=== PATIENT | male | born 1940 | race Caucasian/White ===

== ENCOUNTER 2021-04-11 14:00 | Outpatient (CLI) | payer MEDICARE, OTHER ==
[2021-04-11] MEDS ORDERED: COLLAGENASE 5 GM TUBE UD TP ONE (14:22)
[2021-04-11] MEDS ORDERED: AMYL1CAP54 PO (16:20)
[2021-04-11] MEDS ORDERED: INSU10VI3 SQ (16:20)
[2021-04-11] MEDS ORDERED: SIMV10TA98 PO (16:20)
[2021-04-11] MEDS ORDERED: BISA10SU12 RC (16:20)
[2021-04-11] MEDS ORDERED: CARV3.122 PO (16:20)
[2021-04-11] MEDS ORDERED: FINA5TAB11 PO (16:20)
[2021-04-11] MEDS ORDERED: LINA145C PO (16:20)
[2021-04-11] MEDS ORDERED: DULA0.75 SQ (16:20)
[2021-04-11] MEDS ORDERED: TRAZ-182 PO (16:20)
[2021-04-11] MEDS ORDERED: DOXY100C2 PO (16:22)
[2021-04-11] MEDS ORDERED: CALC1TAB30 PO (16:24)
== END 2021-04-11 23:59 | disposition home or self-care (01) ==
LOC: WOU 14:00
PROVIDERS: ATTEND Surgery
DX: I96 Gangrene, not elsewhere classified (principal); L89.310 Pressure ulcer of right buttock, unstageable; L89.620 Pressure ulcer of left heel, unstageable; E11.621 Type 2 diabetes mellitus with foot ulcer; E11.52 Type 2 diabetes mellitus with diabetic peripheral angiopathy with gangrene; L97.518 Non-pressure chronic ulcer of other part of right foot with other specified severity; I10 Essential (primary) hypertension; E78.5 Hyperlipidemia, unspecified; M62.50 Muscle wasting and atrophy, not elsewhere classified, unspecified site; Z79.4 Long term (current) use of insulin; Z87.891 Personal history of nicotine dependence
CPT/HCPCS: G0463

== ENCOUNTER 2021-04-11 15:02 | Inpatient (IN) | payer MEDICARE, OTHER ==
[~2021-04-11] VITALS: Ht 172.7 cm; Wt 87.3 kg
[2021-04-11] MEDS ORDERED: IV NS 0.9% 1,000 ML BAG IV ONE (15:30)
[2021-04-11] MEDS ORDERED: PIPERACILLIN /TAZOBACTAM 3.375 G in IV D5W 50 ML IV ONE (15:30)
[2021-04-11] MEDS ORDERED: VANCOMYCIN 1 GM in IV D5W 250 ML IV ONE (15:30)
[2021-04-11 16:07] LABS: BASOPHILS % (AUTO) 0.2 % (0.0-2.0); HEMATOCRIT 43 % (39-51); HEMOGLOBIN 13.6 g/dL (13.5-17.5); LYMPHOCYTES # (AUTO) 1.6 K/uL (0.8-4.8); MEAN CORPUSCULAR HGB CONC 32 g/dl (31.0-36.0); MEAN CORPUSCULAR VOLUME 89 fL (80-96); MONOCYTES # (AUTO) 1.2 K/uL (0.1-1.30); MONOCYTES % (AUTO) 8.9 % (2.0-12.0); NEUTROPHILS # (AUTO) 10.4 K/uL (1.8-8.9); NEUTROPHILS % (AUTO) 77.9 % (43.0-81.0); PLATELET COUNT (AUTO) 402 K/uL (150-450); WHITE BLOOD COUNT (AUTO) 13.4 K/uL (4.3-11.0)
[2021-04-11 16:16] LABS: CALCIUM, SERUM 8.9 mg/dL (8.5-10.1); CARBON DIOXIDE 28 mmol/L (21-32); CHLORIDE 102 mmol/L (98-107); CREATININE 1.1 mg/dL (0.6-1.3); GLUCOSE 138 mg/dL (74-106); POTASSIUM 5.1 mmol/L (3.5-5.1); SODIUM SERUM 136 mmol/L (136-145); UREA NITROGEN, BLOOD 32 mg/dL (7-18)
[2021-04-11] MEDS ORDERED: AMYL1CAP54 PO (16:20)
[2021-04-11] MEDS ORDERED: LINA145C PO (16:20)
[2021-04-11] MEDS ORDERED: CARV3.122 PO (16:20)
[2021-04-11] MEDS ORDERED: DULA0.75 SQ (16:20)
[2021-04-11] MEDS ORDERED: SIMV10TA98 PO (16:20)
[2021-04-11] MEDS ORDERED: FINA5TAB11 PO (16:20)
[2021-04-11] MEDS ORDERED: TRAZ-182 PO (16:20)
[2021-04-11] MEDS ORDERED: BISA10SU12 RC (16:20)
[2021-04-11] MEDS ORDERED: INSU10VI3 SQ (16:20)
[2021-04-11 16:22] LABS: ALANINE AMINOTRANSFERASE 32 U/L (12-78); ALBUMIN 2.2 g/dL (3.4-5.0); ALKALINE PHOSPHATASE 266 U/L (46-116); ASPARTATE AMINOTRANSFERASE 69 U/L (15-37); BILIRUBIN,DIRECT 0.3 mg/dL (0.0-0.2); BILIRUBIN,TOTAL 0.9 mg/dL (0.2-1.0); TOTAL PROTEIN, SERUM 7.4 g/dL (6.4-8.2)
[2021-04-11] MEDS ORDERED: DOXY100C2 PO (16:22)
[2021-04-11] MEDS ORDERED: CALC1TAB30 PO (16:24)
[2021-04-11 16:56] LABS: BILIRUBIN,URINE NEGATIVE (NEGATIVE); COLOR,URINE YELLOW (YELLOW); LEUKOCYTE ESTERASE ,URINE NEGATIVE (NEGATIVE); NITRITE, URINE NEGATIVE (NEGATIVE); PROTEIN,URINE NEGATIVE (NEGATIVE); UGLUCOSE NEGATIVE (NEGATIVE); UROBILINOGEN,URINE 0.2 EU/dL (0.2)
[2021-04-11 20:00] VITALS: BP 122/80
[2021-04-11] MEDS ORDERED: MORPHINE SULFATE INJ 2 MG/ML DISP.SYRIN IV PRN (21:30)
[2021-04-11] MEDS ORDERED: ZOLPIDEM TARTRATE 5 MG TABLET PO PRN (21:30)
[2021-04-11] MEDS ORDERED: BISACODYL SUPP (10 MG) 10 MG/SUPP.RECT SUPP.RECT RC PRN (21:30)
[2021-04-11] MEDS: ENOXAPARIN SODIUM 40 MG/0.4 ML DISP.SYRIN SQ SCH ×2 (21:30→22:41)
[2021-04-11] MEDS ORDERED: Z GUARD REMEDY 2 OZ OINT TP PRN (21:30)
[2021-04-11] MEDS ORDERED: CEFEPIME 2 GM in IV D5W 100 ML IV SCH (21:30)
[2021-04-11] MEDS ORDERED: ONDANSETRON HCL/PF 4 MG/2 ML VIAL IVP PRN (21:30)
[2021-04-11] MEDS ORDERED: MAGNESIUM HYDROXIDE 30 ML UDC PO PRN (21:30)
[2021-04-11] MEDS ORDERED: ACETAMINOPHEN 325 MG TABLET PO PRN (21:30)
[2021-04-11] MEDS: TRAZODONE 50 MG TABLET PO SCH ×2 (22:00→22:40)
[2021-04-11] MEDS: IV NS 0.9% 1,000 ML IV PRN (22:52)
[2021-04-11] MEDS ORDERED: CEFEPIME 1 GM VIAL ONE (23:12)
[2021-04-11] MEDS: CEFEPIME 2 GM in IV D5W 100 ML IV SCH (23:55)
[2021-04-12 06:41] LABS: BASOPHILS % (AUTO) 0.1 % (0.0-2.0); EOSINOPHILS % (AUTO) 1.2 % (0.0-6.0); HEMATOCRIT 44 % (39-51); HEMOGLOBIN 14.1 g/dL (13.5-17.5); LYMPHOCYTES # (AUTO) 1.2 K/uL (0.8-4.8); LYMPHOCYTES % (AUTO) 11.6 % (20.0-44.0); MEAN CORPUSCULAR HGB CONC 32 g/dl (31.0-36.0); MEAN CORPUSCULAR VOLUME 92 fL (80-96); MONOCYTES # (AUTO) 0.9 K/uL (0.1-1.30); MONOCYTES % (AUTO) 8.8 % (2.0-12.0); NEUTROPHILS # (AUTO) 8.2 K/uL (1.8-8.9); NEUTROPHILS % (AUTO) 78.3 % (43.0-81.0); PLATELET COUNT (AUTO) 340 K/uL (150-450); RED BLOOD CELL COUNT(AUTO) 4.76 MIL/uL (4.5-6.0); WHITE BLOOD COUNT (AUTO) 10.5 K/uL (4.3-11.0)
[2021-04-12 07:06] LABS: CALCIUM, SERUM 8.8 mg/dL (8.5-10.1); MAGNESIUM 1.7 mg/dL (1.8-2.4); PHOSPHORUS 3.6 mg/dL (2.5-4.9); POTASSIUM 4.7 mmol/L (3.5-5.1)
[2021-04-12 07:10] LABS: THYROID STIMULATING HORMONE 1.557 uIU/mL (0.358-3.74)
[2021-04-12] MEDS: PANTOPRAZOLE 40 MG TABLET.DR PO SCH ×2 (07:30→08:15)
[2021-04-12] MEDS: LIPASE/PROTEASE/AMYLASE 1 EACH CAPSULE.DR PO SCH ×5 (08:00→18:00)
[2021-04-12] MEDS: FINASTERIDE (5 MG) 5 MG TABLET PO SCH ×2 (08:15→09:00)
[2021-04-12] MEDS: DOCUSATE SODIUM 100 MG CAPSULE PO SCH ×3 (08:15→17:00)
[2021-04-12] MEDS: CARVEDILOL 3.125 MG TABLET PO SCH ×3 (08:18→17:00)
[2021-04-12 08:35] VITALS: BP_SYST 108; BP_SYST 115; BP_DIAS 51; BP_DIAS 59
[2021-04-12] MEDS: INSULN 70/30 ASP+PRT/ASP MIX 100 UNIT/ML CARTRIDGE SQ SCH ×2 (09:00→17:00)
[2021-04-12] MEDS: VANCOMYCIN 1 GM in IV D5W 250 ML IV SCH ×2 (09:54→20:02)
[2021-04-12] MEDS: CEFEPIME 2 GM in IV D5W 100 ML IV SCH ×2 (11:21→21:30)
[2021-04-12] MEDS: Magnesium 1GM/D5W 100ML PREMIX 100 ML IV SCH ×2 (11:21→12:39)
[2021-04-12] MEDS ORDERED: ALBUTEROL FS 2.5 MG/0.5 ML VIAL.NEB NEB PRN (12:00)
[2021-04-12] MEDS ORDERED: IPRATROPIUM NEB FS 0.5 MG/2.5 ML AMPUL.NEB NEB PRN (12:30)
[2021-04-12 16:23] VITALS: BP 138/54
[2021-04-12] MEDS: SIMVASTATIN 10 MG TABLET PO SCH (18:00)
[2021-04-12] MEDS: IV NS 0.9% 1,000 ML IV PRN (18:47)
[2021-04-12 20:00] VITALS: BP 127/93
[2021-04-12] MEDS: ENOXAPARIN SODIUM 40 MG/0.4 ML DISP.SYRIN SQ SCH (21:53)
[2021-04-12] MEDS: TRAZODONE 50 MG TABLET PO SCH (22:00)
[2021-04-13 07:27] LABS: BASOPHILS % (AUTO) 0.3 % (0.0-2.0); EOSINOPHILS % (AUTO) 1.1 % (0.0-6.0); HEMATOCRIT 44 % (39-51); HEMOGLOBIN 14.2 g/dL (13.5-17.5); LYMPHOCYTES % (AUTO) 9.8 % (20.0-44.0); MEAN CORPUSCULAR HGB CONC 32 g/dl (31.0-36.0); MEAN CORPUSCULAR VOLUME 90 fL (80-96); MONOCYTES # (AUTO) 0.8 K/uL (0.1-1.30); MONOCYTES % (AUTO) 7.8 % (2.0-12.0); NEUTROPHILS # (AUTO) 7.9 K/uL (1.8-8.9); PLATELET COUNT (AUTO) 343 K/uL (150-450); RED BLOOD CELL COUNT(AUTO) 4.87 MIL/uL (4.5-6.0); WHITE BLOOD COUNT (AUTO) 9.8 K/uL (4.3-11.0)
[2021-04-13] MEDS: PANTOPRAZOLE 40 MG TABLET.DR PO SCH (07:30)
[2021-04-13 07:39] LABS: CALCIUM, SERUM 8.9 mg/dL (8.5-10.1); CREATININE 1.1 mg/dL (0.6-1.3); MAGNESIUM 2.3 mg/dL (1.8-2.4); PHOSPHORUS 3.8 mg/dL (2.5-4.9); POTASSIUM 4.5 mmol/L (3.5-5.1)
[2021-04-13 08:00] VITALS: BP 150/71
[2021-04-13] MEDS: VANCOMYCIN 1 GM in IV D5W 250 ML IV SCH (08:00)
[2021-04-13] MEDS: LIPASE/PROTEASE/AMYLASE 1 EACH CAPSULE.DR PO SCH ×3 (08:00→18:00)
[2021-04-13] MEDS: FINASTERIDE (5 MG) 5 MG TABLET PO SCH (09:00)
[2021-04-13] MEDS: INSULN 70/30 ASP+PRT/ASP MIX 100 UNIT/ML CARTRIDGE SQ SCH ×2 (09:00→17:00)
[2021-04-13] MEDS: CARVEDILOL 3.125 MG TABLET PO SCH ×3 (09:00→16:52)
[2021-04-13] MEDS: DOCUSATE SODIUM 100 MG CAPSULE PO SCH ×3 (09:00→16:52)
[2021-04-13] MEDS: CEFEPIME 2 GM in IV D5W 100 ML IV SCH ×2 (09:26→20:04)
[2021-04-13] MEDS ORDERED: IOHEXOL-350 100 ML VIAL IV ONE ×2 (09:33→14:38)
[2021-04-13] MEDS: IV NS 0.9% 1,000 ML IV PRN (13:19)
[2021-04-13] MEDS ORDERED: CT SWABBABLE VALVE TRANS SET 1 EA INFUS.SET MC ONE (14:38)
[2021-04-13] MEDS ORDERED: IV NS 0.9% 250 ML IV ONE (14:38)
[2021-04-13 16:00] VITALS: BP 103/50
[2021-04-13] MEDS: DAKINS QUARTER STRENGTH (0.125%) 480 ML BOTTLE TOP SCH (16:05)
[2021-04-13] MEDS: SIMVASTATIN 10 MG TABLET PO SCH (18:00)
[2021-04-13 19:59] VITALS: BP_SYST 105; BP_SYST 111; BP_DIAS 70; BP_DIAS 72
[2021-04-13] MEDS: ENOXAPARIN SODIUM 40 MG/0.4 ML DISP.SYRIN SQ SCH (20:46)
[2021-04-13] MEDS: VANCOMYCIN 0.75 GM in IV D5W 250 ML IV SCH (21:17)
[2021-04-13] MEDS: TRAZODONE 50 MG TABLET PO SCH (22:00)
[2021-04-14] VITALS (24 sets, daily range): BP systolic 106–160; BP diastolic 48–96
[2021-04-14] MEDS: IV NS 0.9% 1,000 ML IV PRN ×2 (05:23→11:41)
[2021-04-14] MEDS ORDERED: IV NS 0.9% 1,000 ML ONE (07:14)
[2021-04-14] MEDS ORDERED: IV SET PRIMARY PUMP SET 1 EA INFUS.SET MC ONE (07:14)
[2021-04-14 07:19] LABS: BASOPHILS % (AUTO) 0.3 % (0.0-2.0); EOSINOPHILS % (AUTO) 1.2 % (0.0-6.0); HEMATOCRIT 40 % (39-51); HEMOGLOBIN 13.3 g/dL (13.5-17.5); LYMPHOCYTES # (AUTO) 0.8 K/uL (0.8-4.8); LYMPHOCYTES % (AUTO) 7.3 % (20.0-44.0); MEAN CORPUSCULAR HGB CONC 34 g/dl (31.0-36.0); MEAN CORPUSCULAR VOLUME 89 fL (80-96); MONOCYTES # (AUTO) 0.8 K/uL (0.1-1.30); MONOCYTES % (AUTO) 7.6 % (2.0-12.0); NEUTROPHILS # (AUTO) 8.9 K/uL (1.8-8.9); NEUTROPHILS % (AUTO) 83.6 % (43.0-81.0); PLATELET COUNT (AUTO) 327 K/uL (150-450); RED BLOOD CELL COUNT(AUTO) 4.44 MIL/uL (4.5-6.0); WHITE BLOOD COUNT (AUTO) 10.6 K/uL (4.3-11.0)
[2021-04-14] MEDS: PANTOPRAZOLE 40 MG TABLET.DR PO SCH (07:30)
[2021-04-14 07:40] LABS: CREATININE 1.1 mg/dL (0.6-1.3); MAGNESIUM 2.1 mg/dL (1.8-2.4); PHOSPHORUS 3.5 mg/dL (2.5-4.9); POTASSIUM 4.4 mmol/L (3.5-5.1)
[2021-04-14] MEDS ORDERED: IODIXANOL 150 ML IV ONE ×2 (07:59→09:13)
[2021-04-14] MEDS: LIPASE/PROTEASE/AMYLASE 1 EACH CAPSULE.DR PO SCH ×3 (08:00→17:24)
[2021-04-14] MEDS ORDERED: MIDAZOLAM HCL 2 MG/2ML VIAL ONE (08:04)
[2021-04-14] MEDS ORDERED: FENTANYL PF 100MCG/2ML AMPUL ONE (08:04)
[2021-04-14] MEDS ORDERED: LIDOCAINE HCL/MPF 1% 30 ML VIAL IJ ONE (08:06)
[2021-04-14] MEDS: DAKINS QUARTER STRENGTH (0.125%) 480 ML BOTTLE TOP SCH (09:00)
[2021-04-14] MEDS: INSULN 70/30 ASP+PRT/ASP MIX 100 UNIT/ML CARTRIDGE SQ SCH ×2 (09:00→17:00)
[2021-04-14] MEDS: DOCUSATE SODIUM 100 MG CAPSULE PO SCH ×2 (09:00→16:27)
[2021-04-14] MEDS: FINASTERIDE (5 MG) 5 MG TABLET PO SCH (09:00)
[2021-04-14] MEDS: CARVEDILOL 3.125 MG TABLET PO SCH ×2 (09:00→16:27)
[2021-04-14] MEDS ORDERED: HEPARIN SODIUM, PORCINE 5000 UNITS/1 ML VIAL ONE (09:27)
[2021-04-14] MEDS ORDERED: HEPARIN SODIUM, PORCINE 1,000 UNIT/ML VIAL ONE ×2 (09:27→09:53)
[2021-04-14] MEDS ORDERED: IODIXANOL 320MG/ML 50 ML IV ONE (09:38)
[2021-04-14] MEDS: VANCOMYCIN 0.75 GM in IV D5W 250 ML IV SCH ×2 (11:39→20:33)
[2021-04-14] MEDS: CEFEPIME 2 GM in IV D5W 100 ML IV SCH ×2 (11:39→21:43)
[2021-04-14] MEDS ORDERED: DEXTROSE 50%-WATER 50 ML DISP.SYRIN IV PRN (14:30)
[2021-04-14] MEDS: BLOOD SUGAR DIAGNOSTIC 1 EACH STRIP IN SCH ×2 (16:28→22:21)
[2021-04-14] MEDS: SIMVASTATIN 10 MG TABLET PO SCH (17:25)
[2021-04-14] MEDS: ENOXAPARIN SODIUM 40 MG/0.4 ML DISP.SYRIN SQ SCH (21:46)
[2021-04-14] MEDS: TRAZODONE 50 MG TABLET PO SCH (22:00)
[2021-04-14] MEDS: INSULIN REGULAR, HUMAN 100 UNIT/ML 3 ML VIAL SQ PRN (22:39)
[2021-04-15] VITALS (22 sets, daily range): BP systolic 99–131; BP diastolic 48–100
[2021-04-15 04:25] LABS: BASOPHILS % (AUTO) 0.2 % (0.0-2.0); EOSINOPHILS % (AUTO) 0.6 % (0.0-6.0); HEMATOCRIT 40 % (39-51); HEMOGLOBIN 12.8 g/dL (13.5-17.5); LYMPHOCYTES # (AUTO) 0.9 K/uL (0.8-4.8); LYMPHOCYTES % (AUTO) 7.6 % (20.0-44.0); MEAN CORPUSCULAR HGB CONC 32 g/dl (31.0-36.0); MEAN CORPUSCULAR VOLUME 91 fL (80-96); MONOCYTES # (AUTO) 0.9 K/uL (0.1-1.30); NEUTROPHILS # (AUTO) 10.5 K/uL (1.8-8.9); NEUTROPHILS % (AUTO) 84.6 % (43.0-81.0); PLATELET COUNT (AUTO) 386 K/uL (150-450); RED BLOOD CELL COUNT(AUTO) 4.42 MIL/uL (4.5-6.0); WHITE BLOOD COUNT (AUTO) 12.4 K/uL (4.3-11.0)
[2021-04-15 04:47] LABS: CALCIUM, SERUM 8.9 mg/dL (8.5-10.1); CREATININE 1.2 mg/dL (0.6-1.3); PHOSPHORUS 3.6 mg/dL (2.5-4.9); POTASSIUM 4.7 mmol/L (3.5-5.1)
[2021-04-15] MEDS: IV NS 0.9% 1,000 ML IV PRN ×2 (05:06→17:40)
[2021-04-15] MEDS: PANTOPRAZOLE 40 MG TABLET.DR PO SCH (07:30)
[2021-04-15] MEDS: BLOOD SUGAR DIAGNOSTIC 1 EACH STRIP IN SCH ×4 (07:51→22:49)
[2021-04-15] MEDS: VANCOMYCIN 0.75 GM in IV D5W 250 ML IV SCH (07:55)
[2021-04-15] MEDS: LIPASE/PROTEASE/AMYLASE 1 EACH CAPSULE.DR PO SCH ×3 (08:00→17:05)
[2021-04-15] MEDS: DOCUSATE SODIUM 100 MG CAPSULE PO SCH ×2 (08:10→16:20)
[2021-04-15] MEDS: CARVEDILOL 3.125 MG TABLET PO SCH ×2 (08:10→16:20)
[2021-04-15] MEDS: FINASTERIDE (5 MG) 5 MG TABLET PO SCH (08:11)
[2021-04-15] MEDS: INSULN 70/30 ASP+PRT/ASP MIX 100 UNIT/ML CARTRIDGE SQ SCH ×2 (09:00→17:00)
[2021-04-15] MEDS: INSULIN REGULAR, HUMAN 100 UNIT/ML 3 ML VIAL SQ PRN ×2 (09:07→22:50)
[2021-04-15] MEDS: DAKINS QUARTER STRENGTH (0.125%) 480 ML BOTTLE TOP SCH (09:16)
[2021-04-15] MEDS: CEFEPIME 2 GM in IV D5W 100 ML IV SCH ×2 (10:00→21:03)
[2021-04-15] MEDS: GLUCERNA SHAKE 237 ML CAN PO SCH ×2 (15:00→16:21)
[2021-04-15] MEDS: SIMVASTATIN 10 MG TABLET PO SCH (17:05)
[2021-04-15] MEDS: ENOXAPARIN SODIUM 40 MG/0.4 ML DISP.SYRIN SQ SCH (21:25)
[2021-04-15] MEDS: TRAZODONE 50 MG TABLET PO SCH (22:00)
[2021-04-16 06:18] VITALS: BP 115/59
[2021-04-16] MEDS: BLOOD SUGAR DIAGNOSTIC 1 EACH STRIP IN SCH ×4 (06:30→22:27)
[2021-04-16] MEDS: IV NS 0.9% 1,000 ML IV PRN ×2 (06:30→20:47)
[2021-04-16] MEDS: INSULIN REGULAR, HUMAN 100 UNIT/ML 3 ML VIAL SQ PRN ×4 (06:47→22:42)
[2021-04-16 06:49] LABS: BASOPHILS % (AUTO) 0.2 % (0.0-2.0); EOSINOPHILS % (AUTO) 0.7 % (0.0-6.0); HEMATOCRIT 39 % (39-51); HEMOGLOBIN 12.6 g/dL (13.5-17.5); LYMPHOCYTES # (AUTO) 0.7 K/uL (0.8-4.8); LYMPHOCYTES % (AUTO) 6.9 % (20.0-44.0); MEAN CORPUSCULAR HGB CONC 32 g/dl (31.0-36.0); MEAN CORPUSCULAR VOLUME 90 fL (80-96); MONOCYTES # (AUTO) 0.7 K/uL (0.1-1.30); MONOCYTES % (AUTO) 6.9 % (2.0-12.0); NEUTROPHILS # (AUTO) 8.4 K/uL (1.8-8.9); NEUTROPHILS % (AUTO) 85.3 % (43.0-81.0); PLATELET COUNT (AUTO) 294 K/uL (150-450); RED BLOOD CELL COUNT(AUTO) 4.36 MIL/uL (4.5-6.0); WHITE BLOOD COUNT (AUTO) 9.9 K/uL (4.3-11.0)
[2021-04-16] MEDS: GLUCERNA SHAKE 237 ML CAN PO SCH ×2 (07:46→16:23)
[2021-04-16 07:58] LABS: CREATININE 1.2 mg/dL (0.6-1.3); MAGNESIUM 2.2 mg/dL (1.8-2.4); PHOSPHORUS 3.1 mg/dL (2.5-4.9); POTASSIUM 4.3 mmol/L (3.5-5.1)
[2021-04-16 08:00] VITALS: BP 126/89
[2021-04-16] MEDS: LIPASE/PROTEASE/AMYLASE 1 EACH CAPSULE.DR PO SCH ×4 (08:00→17:22)
[2021-04-16] MEDS: PANTOPRAZOLE 40 MG VIAL IV SCH (08:50)
[2021-04-16] MEDS: CEFEPIME 2 GM in IV D5W 100 ML IV SCH ×2 (08:50→20:26)
[2021-04-16] MEDS: CARVEDILOL 3.125 MG TABLET PO SCH ×2 (09:00→16:23)
[2021-04-16] MEDS: FINASTERIDE (5 MG) 5 MG TABLET PO SCH (09:00)
[2021-04-16] MEDS ORDERED: VANCOMYCIN 1 GM in IV D5W 250 ML IV SCH ×2 (09:00→21:00)
[2021-04-16] MEDS: DOCUSATE SODIUM 100 MG CAPSULE PO SCH ×2 (09:00→16:23)
[2021-04-16] MEDS: INSULN 70/30 ASP+PRT/ASP MIX 100 UNIT/ML CARTRIDGE SQ SCH ×2 (09:00→16:42)
[2021-04-16] MEDS: DAKINS QUARTER STRENGTH (0.125%) 480 ML BOTTLE TOP SCH (09:29)
[2021-04-16 16:00] VITALS: BP 110/65
[2021-04-16] MEDS: SIMVASTATIN 10 MG TABLET PO SCH (17:22)
[2021-04-16 20:00] VITALS: BP 113/49
[2021-04-16] MEDS: TRAZODONE 50 MG TABLET PO SCH ×2 (22:00→22:27)
[2021-04-16] MEDS: ENOXAPARIN SODIUM 40 MG/0.4 ML DISP.SYRIN SQ SCH (22:28)
[2021-04-17] MEDS: BLOOD SUGAR DIAGNOSTIC 1 EACH STRIP IN SCH ×4 (06:47→22:27)
[2021-04-17 06:52] LABS: BASOPHILS # (AUTO) 0.1 K/uL (0.0-0.2); BASOPHILS % (AUTO) 0.5 % (0.0-2.0); EOSINOPHILS % (AUTO) 1.9 % (0.0-6.0); HEMATOCRIT 39 % (39-51); HEMOGLOBIN 12.2 g/dL (13.5-17.5); LYMPHOCYTES # (AUTO) 0.9 K/uL (0.8-4.8); LYMPHOCYTES % (AUTO) 8.4 % (20.0-44.0); MEAN CORPUSCULAR HGB CONC 32 g/dl (31.0-36.0); MEAN CORPUSCULAR VOLUME 92 fL (80-96); MONOCYTES # (AUTO) 0.9 K/uL (0.1-1.30); MONOCYTES % (AUTO) 8.4 % (2.0-12.0); NEUTROPHILS # (AUTO) 8.6 K/uL (1.8-8.9); NEUTROPHILS % (AUTO) 80.8 % (43.0-81.0); PLATELET COUNT (AUTO) 290 K/uL (150-450); WHITE BLOOD COUNT (AUTO) 10.6 K/uL (4.3-11.0)
[2021-04-17 07:20] LABS: CALCIUM, SERUM 9.4 mg/dL (8.5-10.1); CREATININE 1.3 mg/dL (0.6-1.3); MAGNESIUM 2.3 mg/dL (1.8-2.4); PHOSPHORUS 2.6 mg/dL (2.5-4.9); POTASSIUM 4.3 mmol/L (3.5-5.1)
[2021-04-17] MEDS: GLUCERNA SHAKE 237 ML CAN PO SCH ×2 (08:00→17:00)
[2021-04-17] MEDS: INSULN 70/30 ASP+PRT/ASP MIX 100 UNIT/ML CARTRIDGE SQ SCH ×2 (09:00→17:00)
[2021-04-17 09:05] VITALS: BP 143/83
[2021-04-17] MEDS: CARVEDILOL 3.125 MG TABLET PO SCH ×2 (09:05→17:00)
[2021-04-17] MEDS: PANTOPRAZOLE 40 MG VIAL IV SCH (09:05)
[2021-04-17] MEDS: DOCUSATE SODIUM 100 MG CAPSULE PO SCH ×2 (09:05→17:00)
[2021-04-17] MEDS: FINASTERIDE (5 MG) 5 MG TABLET PO SCH (09:05)
[2021-04-17] MEDS: DAKINS QUARTER STRENGTH (0.125%) 480 ML BOTTLE TOP SCH (09:06)
[2021-04-17] MEDS: LIPASE/PROTEASE/AMYLASE 1 EACH CAPSULE.DR PO SCH ×3 (09:17→18:00)
[2021-04-17] MEDS: CEFEPIME 2 GM in IV D5W 100 ML IV SCH ×2 (09:20→20:16)
[2021-04-17] MEDS: IV NS 0.9% 1,000 ML IV PRN (11:12)
[2021-04-17] MEDS: SIMVASTATIN 10 MG TABLET PO SCH (18:00)
[2021-04-17 20:00] VITALS: BP 121/69
[2021-04-17] MEDS: ENOXAPARIN SODIUM 40 MG/0.4 ML DISP.SYRIN SQ SCH (21:30)
[2021-04-17] MEDS: TRAZODONE 50 MG TABLET PO SCH (22:00)
[2021-04-17] MEDS: INSULIN REGULAR, HUMAN 100 UNIT/ML 3 ML VIAL SQ PRN (22:28)
[2021-04-18] VITALS (13 sets, daily range): BP systolic 99–131; BP diastolic 38–71
[2021-04-18] MEDS: IV NS 0.9% 1,000 ML IV PRN ×3 (04:19→23:37)
[2021-04-18] MEDS ORDERED: IV NS 0.9% 1,000 ML ONE (05:35)
[2021-04-18] MEDS ORDERED: IODIXANOL 150 ML IV ONE (05:35)
[2021-04-18] MEDS ORDERED: LIDOCAINE HCL/MPF 1% 30 ML VIAL IJ ONE (05:36)
[2021-04-18 06:48] LABS: BASOPHILS % (AUTO) 0.2 % (0.0-2.0); EOSINOPHILS % (AUTO) 0.4 % (0.0-6.0); HEMATOCRIT 36 % (39-51); HEMOGLOBIN 11.6 g/dL (13.5-17.5); LYMPHOCYTES # (AUTO) 0.7 K/uL (0.8-4.8); LYMPHOCYTES % (AUTO) 6.1 % (20.0-44.0); MEAN CORPUSCULAR HGB CONC 32 g/dl (31.0-36.0); MEAN CORPUSCULAR VOLUME 91 fL (80-96); MONOCYTES # (AUTO) 0.9 K/uL (0.1-1.30); MONOCYTES % (AUTO) 7.8 % (2.0-12.0); NEUTROPHILS # (AUTO) 10.3 K/uL (1.8-8.9); NEUTROPHILS % (AUTO) 85.5 % (43.0-81.0); PLATELET COUNT (AUTO) 223 K/uL (150-450); RED BLOOD CELL COUNT(AUTO) 3.99 MIL/uL (4.5-6.0); WHITE BLOOD COUNT (AUTO) 12.1 K/uL (4.3-11.0)
[2021-04-18] MEDS ORDERED: FENTANYL PF 100MCG/2ML AMPUL ONE ×2 (07:14→08:33)
[2021-04-18] MEDS ORDERED: MIDAZOLAM HCL 2 MG/2ML VIAL ONE (07:14)
[2021-04-18] MEDS: BLOOD SUGAR DIAGNOSTIC 1 EACH STRIP IN SCH ×4 (07:30→21:26)
[2021-04-18] MEDS ORDERED: NITROGLYCERIN PACKET 1 GM PACKET ONE (07:35)
[2021-04-18 07:59] LABS: CALCIUM, SERUM 9.1 mg/dL (8.5-10.1); CREATININE 1.1 mg/dL (0.6-1.3); POTASSIUM 4.4 mmol/L (3.5-5.1)
[2021-04-18] MEDS: LIPASE/PROTEASE/AMYLASE 1 EACH CAPSULE.DR PO SCH ×3 (08:00→16:18)
[2021-04-18] MEDS: GLUCERNA SHAKE 237 ML CAN PO SCH ×2 (08:00→16:18)
[2021-04-18] MEDS ORDERED: HEPARIN SODIUM, PORCINE 1,000 UNIT/ML VIAL ONE ×2 (08:04→08:16)
[2021-04-18] MEDS ORDERED: NITROGLYCERIN IN 5 % DEXTROSE 250 ML IV ONE (08:10)
[2021-04-18] MEDS ORDERED: IODIXANOL 320MG/ML 50 ML IV ONE (08:16)
[2021-04-18] MEDS: CARVEDILOL 3.125 MG TABLET PO SCH ×2 (09:00→16:17)
[2021-04-18] MEDS: DOCUSATE SODIUM 100 MG CAPSULE PO SCH ×2 (09:00→16:17)
[2021-04-18] MEDS: FINASTERIDE (5 MG) 5 MG TABLET PO SCH (09:00)
[2021-04-18] MEDS: DAKINS QUARTER STRENGTH (0.125%) 480 ML BOTTLE TOP SCH (09:00)
[2021-04-18] MEDS: CEFEPIME 2 GM in IV D5W 100 ML IV SCH (09:00)
[2021-04-18] MEDS: PANTOPRAZOLE 40 MG TABLET.DR PO SCH (09:00)
[2021-04-18] MEDS: INSULN 70/30 ASP+PRT/ASP MIX 100 UNIT/ML CARTRIDGE SQ SCH ×2 (09:00→17:00)
[2021-04-18] MEDS ORDERED: protAMINE SULFATE 10 MG/ML VIAL IV ONE (09:37)
[2021-04-18] MEDS: SIMVASTATIN 10 MG TABLET PO SCH (16:18)
[2021-04-18] MEDS: ENOXAPARIN SODIUM 40 MG/0.4 ML DISP.SYRIN SQ SCH (21:28)
[2021-04-18] MEDS: TRAZODONE 50 MG TABLET PO SCH (21:34)
[2021-04-19] VITALS (22 sets, daily range): BP systolic 109–156; BP diastolic 25–75
[2021-04-19 04:38] LABS: BASOPHILS % (AUTO) 0.1 % (0.0-2.0); CALCIUM, SERUM 8.8 mg/dL (8.5-10.1); CARBON DIOXIDE 19 mmol/L (21-32); CHLORIDE 115 mmol/L (98-107); CREATININE 1.2 mg/dL (0.6-1.3); EOSINOPHILS % (AUTO) 0.4 % (0.0-6.0); GLUCOSE 97 mg/dL (74-106); HEMATOCRIT 34 % (39-51); HEMOGLOBIN 11.1 g/dL (13.5-17.5); LYMPHOCYTES # (AUTO) 0.6 K/uL (0.8-4.8); LYMPHOCYTES % (AUTO) 5.2 % (20.0-44.0); MEAN CORPUSCULAR HGB CONC 33 g/dl (31.0-36.0); MEAN CORPUSCULAR VOLUME 89 fL (80-96); MONOCYTES % (AUTO) 8.3 % (2.0-12.0); NEUTROPHILS # (AUTO) 10.3 K/uL (1.8-8.9); PLATELET COUNT (AUTO) 218 K/uL (150-450); POTASSIUM 3.6 mmol/L (3.5-5.1); RED BLOOD CELL COUNT(AUTO) 3.79 MIL/uL (4.5-6.0); SODIUM SERUM 145 mmol/L (136-145); UREA NITROGEN, BLOOD 27 mg/dL (7-18)
[2021-04-19] MEDS: GLUCERNA SHAKE 237 ML CAN PO SCH ×2 (08:00→17:00)
[2021-04-19] MEDS: LIPASE/PROTEASE/AMYLASE 1 EACH CAPSULE.DR PO SCH ×3 (08:00→17:23)
[2021-04-19] MEDS: DOCUSATE SODIUM 100 MG CAPSULE PO SCH ×2 (08:15→17:00)
[2021-04-19] MEDS: CARVEDILOL 3.125 MG TABLET PO SCH ×2 (08:15→17:00)
[2021-04-19] MEDS: BLOOD SUGAR DIAGNOSTIC 1 EACH STRIP IN SCH ×4 (08:15→21:48)
[2021-04-19] MEDS: FINASTERIDE (5 MG) 5 MG TABLET PO SCH (08:16)
[2021-04-19] MEDS: PANTOPRAZOLE 40 MG TABLET.DR PO SCH (08:16)
[2021-04-19] MEDS: INSULN 70/30 ASP+PRT/ASP MIX 100 UNIT/ML CARTRIDGE SQ SCH ×2 (08:16→17:00)
[2021-04-19] MEDS: DAKINS QUARTER STRENGTH (0.125%) 480 ML BOTTLE TOP SCH (08:17)
[2021-04-19] MEDS ORDERED: IV 1/2NS 1000 ML 1,000 ML IV SCH (09:30)
[2021-04-19] MEDS: IV D5/0.45 NACL 1,000 ML IV PRN (13:42)
[2021-04-19] MEDS: SIMVASTATIN 10 MG TABLET PO SCH (17:24)
[2021-04-19] MEDS: ENOXAPARIN SODIUM 40 MG/0.4 ML DISP.SYRIN SQ SCH (21:31)
[2021-04-19] MEDS: INSULIN REGULAR, HUMAN 100 UNIT/ML 3 ML VIAL SQ PRN (21:49)
[2021-04-19] MEDS: TRAZODONE 50 MG TABLET PO SCH (22:00)
[2021-04-20 01:04] VITALS: BP 146/68
[2021-04-20 06:09] LABS: CALCIUM, SERUM 8.9 mg/dL (8.5-10.1); CREATININE 1.2 mg/dL (0.6-1.3); MAGNESIUM 1.8 mg/dL (1.8-2.4); PHOSPHORUS 2.4 mg/dL (2.5-4.9); POTASSIUM 3.4 mmol/L (3.5-5.1)
[2021-04-20 06:32] LABS: BASOPHILS % (AUTO) 0.1 % (0.0-2.0); EOSINOPHILS % (AUTO) 0.5 % (0.0-6.0); HEMATOCRIT 35 % (39-51); HEMOGLOBIN 11.4 g/dL (13.5-17.5); LYMPHOCYTES # (AUTO) 0.9 K/uL (0.8-4.8); LYMPHOCYTES % (AUTO) 7.4 % (20.0-44.0); MEAN CORPUSCULAR HGB CONC 32 g/dl (31.0-36.0); MEAN CORPUSCULAR VOLUME 90 fL (80-96); MONOCYTES % (AUTO) 8.8 % (2.0-12.0); NEUTROPHILS # (AUTO) 9.7 K/uL (1.8-8.9); NEUTROPHILS % (AUTO) 83.2 % (43.0-81.0); PLATELET COUNT (AUTO) 233 K/uL (150-450); RED BLOOD CELL COUNT(AUTO) 3.91 MIL/uL (4.5-6.0); WHITE BLOOD COUNT (AUTO) 11.7 K/uL (4.3-11.0)
[2021-04-20] MEDS: IV D5/0.45 NACL 1,000 ML IV PRN (07:09)
[2021-04-20] MEDS: BLOOD SUGAR DIAGNOSTIC 1 EACH STRIP IN SCH ×4 (07:35→22:22)
[2021-04-20] MEDS: INSULIN REGULAR, HUMAN 100 UNIT/ML 3 ML VIAL SQ PRN ×3 (07:36→16:42)
[2021-04-20 08:00] VITALS: BP 135/65
[2021-04-20] MEDS: GLUCERNA SHAKE 237 ML CAN PO SCH ×2 (08:00→16:12)
[2021-04-20] MEDS: LIPASE/PROTEASE/AMYLASE 1 EACH CAPSULE.DR PO SCH ×3 (08:00→16:45)
[2021-04-20] MEDS: DOCUSATE SODIUM 100 MG CAPSULE PO SCH ×2 (08:25→16:12)
[2021-04-20] MEDS: CARVEDILOL 3.125 MG TABLET PO SCH ×2 (08:25→16:25)
[2021-04-20] MEDS: PANTOPRAZOLE 40 MG TABLET.DR PO SCH (08:26)
[2021-04-20] MEDS: FINASTERIDE (5 MG) 5 MG TABLET PO SCH (08:26)
[2021-04-20] MEDS: DAKINS QUARTER STRENGTH (0.125%) 480 ML BOTTLE TOP SCH (09:00)
[2021-04-20] MEDS: INSULN 70/30 ASP+PRT/ASP MIX 100 UNIT/ML CARTRIDGE SQ SCH ×2 (09:00→16:44)
[2021-04-20] MEDS ORDERED: IOHEXOL-350 100 ML VIAL IV ONE (09:12)
[2021-04-20] MEDS ORDERED: NITROGLYCERIN 0.4 MG/TAB BOTTLE ONE (09:24)
[2021-04-20] MEDS ORDERED: METOPROLOL TARTRATE INJ 5 MG/5 ML AMPUL ONE ×2 (09:25→09:33)
[2021-04-20] MEDS: METOPROLOL TARTRATE INJ 5 MG/5 ML AMPUL IVP PRN ×2 (09:30→09:35)
[2021-04-20] MEDS ORDERED: NITROGLYCERIN 0.4 MG/TAB BOTTLE SL ONE (09:30)
[2021-04-20] MEDS: POTASSIUM CL. PREMIX PERIPHER. 50 ML IV SCH ×2 (11:21→12:25)
[2021-04-20 12:00] VITALS: BP 124/75
[2021-04-20] MEDS: POTASSIUM PHOSPHATE MM 7.5 MMOL in IV NS 0.9% 100 ML IV SCH ×2 (13:03→15:52)
[2021-04-20 16:00] VITALS: BP_SYST 135; BP_SYST 97; BP_DIAS 51; BP_DIAS 73
[2021-04-20] MEDS: SIMVASTATIN 10 MG TABLET PO SCH (16:45)
[2021-04-20 20:00] VITALS: BP 98/50
[2021-04-20] MEDS: TRAZODONE 50 MG TABLET PO SCH (22:00)
[2021-04-20] MEDS: ENOXAPARIN SODIUM 40 MG/0.4 ML DISP.SYRIN SQ SCH (22:10)
[2021-04-21] MEDS: IV D5/0.45 NACL 1,000 ML IV PRN ×2 (04:30→18:00)
[2021-04-21 06:03] LABS: BASOPHILS % (AUTO) 0.1 % (0.0-2.0); EOSINOPHILS % (AUTO) 0.6 % (0.0-6.0); HEMATOCRIT 33 % (39-51); HEMOGLOBIN 10.7 g/dL (13.5-17.5); LYMPHOCYTES # (AUTO) 0.7 K/uL (0.8-4.8); LYMPHOCYTES % (AUTO) 7.6 % (20.0-44.0); MEAN CORPUSCULAR HGB CONC 33 g/dl (31.0-36.0); MEAN CORPUSCULAR VOLUME 91 fL (80-96); MONOCYTES # (AUTO) 0.9 K/uL (0.1-1.30); MONOCYTES % (AUTO) 9.3 % (2.0-12.0); NEUTROPHILS % (AUTO) 82.4 % (43.0-81.0); PLATELET COUNT (AUTO) 204 K/uL (150-450); RED BLOOD CELL COUNT(AUTO) 3.63 MIL/uL (4.5-6.0); WHITE BLOOD COUNT (AUTO) 9.7 K/uL (4.3-11.0)
[2021-04-21 06:27] LABS: CALCIUM, SERUM 9.4 mg/dL (8.5-10.1); CREATININE 1.1 mg/dL (0.6-1.3); MAGNESIUM 1.9 mg/dL (1.8-2.4); PHOSPHORUS 2.7 mg/dL (2.5-4.9); POTASSIUM 3.9 mmol/L (3.5-5.1)
[2021-04-21] MEDS: BLOOD SUGAR DIAGNOSTIC 1 EACH STRIP IN SCH ×4 (06:33→22:17)
[2021-04-21] MEDS: LIPASE/PROTEASE/AMYLASE 1 EACH CAPSULE.DR PO SCH ×3 (07:45→17:20)
[2021-04-21] MEDS: GLUCERNA SHAKE 237 ML CAN PO SCH ×2 (07:45→17:00)
[2021-04-21 08:00] VITALS: BP 126/60
[2021-04-21] MEDS: CARVEDILOL 3.125 MG TABLET PO SCH ×2 (08:01→17:00)
[2021-04-21] MEDS: DOCUSATE SODIUM 100 MG CAPSULE PO SCH ×2 (08:01→17:00)
[2021-04-21] MEDS: PANTOPRAZOLE 40 MG TABLET.DR PO SCH (08:08)
[2021-04-21] MEDS: FINASTERIDE (5 MG) 5 MG TABLET PO SCH (08:08)
[2021-04-21] MEDS: INSULN 70/30 ASP+PRT/ASP MIX 100 UNIT/ML CARTRIDGE SQ SCH ×2 (08:09→17:00)
[2021-04-21] MEDS: DAKINS QUARTER STRENGTH (0.125%) 480 ML BOTTLE TOP SCH (08:11)
[2021-04-21] MEDS: INSULIN REGULAR, HUMAN 100 UNIT/ML 3 ML VIAL SQ PRN ×3 (11:25→22:18)
[2021-04-21 16:00] VITALS: BP 128/80
[2021-04-21] MEDS: SIMVASTATIN 10 MG TABLET PO SCH (17:20)
[2021-04-21 20:00] VITALS: BP 161/98
[2021-04-21] MEDS: ENOXAPARIN SODIUM 40 MG/0.4 ML DISP.SYRIN SQ SCH (20:53)
[2021-04-21] MEDS: TRAZODONE 50 MG TABLET PO SCH (21:18)
[2021-04-22] MEDS: IV D5/0.45 NACL 1,000 ML IV PRN (04:13)
[2021-04-22 06:56] LABS: BASOPHILS % (AUTO) 0.1 % (0.0-2.0); EOSINOPHILS % (AUTO) 0.9 % (0.0-6.0); HEMATOCRIT 34 % (39-51); HEMOGLOBIN 11.1 g/dL (13.5-17.5); LYMPHOCYTES # (AUTO) 0.8 K/uL (0.8-4.8); LYMPHOCYTES % (AUTO) 8.3 % (20.0-44.0); MEAN CORPUSCULAR HGB CONC 33 g/dl (31.0-36.0); MEAN CORPUSCULAR VOLUME 90 fL (80-96); MONOCYTES # (AUTO) 0.7 K/uL (0.1-1.30); MONOCYTES % (AUTO) 7.7 % (2.0-12.0); NEUTROPHILS # (AUTO) 7.7 K/uL (1.8-8.9); PLATELET COUNT (AUTO) 191 K/uL (150-450); RED BLOOD CELL COUNT(AUTO) 3.72 MIL/uL (4.5-6.0); WHITE BLOOD COUNT (AUTO) 9.3 K/uL (4.3-11.0)
[2021-04-22 06:59] LABS: CALCIUM, SERUM 8.9 mg/dL (8.5-10.1); CREATININE 0.9 mg/dL (0.6-1.3); MAGNESIUM 1.8 mg/dL (1.8-2.4); PHOSPHORUS 2.3 mg/dL (2.5-4.9); POTASSIUM 3.4 mmol/L (3.5-5.1)
[2021-04-22] MEDS: BLOOD SUGAR DIAGNOSTIC 1 EACH STRIP IN SCH ×3 (07:24→17:30)
[2021-04-22] MEDS: GLUCERNA SHAKE 237 ML CAN PO SCH ×2 (08:00→16:05)
[2021-04-22] MEDS: LIPASE/PROTEASE/AMYLASE 1 EACH CAPSULE.DR PO SCH ×3 (08:00→17:23)
[2021-04-22] MEDS: INSULN 70/30 ASP+PRT/ASP MIX 100 UNIT/ML CARTRIDGE SQ SCH ×2 (08:11→16:05)
[2021-04-22 08:39] VITALS: BP 102/54
[2021-04-22] MEDS: CARVEDILOL 3.125 MG TABLET PO SCH ×2 (08:39→16:05)
[2021-04-22] MEDS: FINASTERIDE (5 MG) 5 MG TABLET PO SCH (08:39)
[2021-04-22] MEDS: DAKINS QUARTER STRENGTH (0.125%) 480 ML BOTTLE TOP SCH (08:39)
[2021-04-22] MEDS: PANTOPRAZOLE 40 MG TABLET.DR PO SCH (08:39)
[2021-04-22] MEDS: DOCUSATE SODIUM 100 MG CAPSULE PO SCH ×2 (08:39→16:05)
[2021-04-22] MEDS ORDERED: POTASSIUM CHLORIDE 20 MEQ TAB.PRT.SR PO SCH (09:30)
[2021-04-22] MEDS ORDERED: K PHOS NEUTRAL 250 MG TABLET PO ONE (09:30)
[2021-04-22] MEDS: SIMVASTATIN 10 MG TABLET PO SCH (17:23)
== END 2021-04-22 18:26 | DRG 252 ==
LOC: ER 15:02 → MED 19:23 → ICU 04-14 11:02 → MED 04-15 20:25 → ICU 04-18 10:02 → MED 04-19 18:50
PROVIDERS: ADMIT Nurse Practitioner Acute Care; ATTEND Nurse Practitioner Acute Care
PROC: 047M3ZZ Dilation of Right Popliteal Artery, Percutaneous Approach (ICD-10-PCS; principal; 2021-04-14)
PROC: 05HC33Z Insertion of Infusion Device into Left Basilic Vein, Percutaneous Approach (ICD-10-PCS; 2021-04-14)
PROC: B410YZZ Fluoroscopy of Abdominal Aorta using Other Contrast (ICD-10-PCS; 2021-04-14)
PROC: 047M3ZZ Dilation of Right Popliteal Artery, Percutaneous Approach (ICD-10-PCS; 2021-04-18)
DX: E11.52 Type 2 diabetes mellitus with diabetic peripheral angiopathy with gangrene (principal); J69.0 Pneumonitis due to inhalation of food and vomit; N17.0 Acute kidney failure with tubular necrosis; J15.9 Unspecified bacterial pneumonia; I96 Gangrene, not elsewhere classified; I87.313 Chronic venous hypertension (idiopathic) with ulcer of bilateral lower extremity; L97.419 Non-pressure chronic ulcer of right heel and midfoot with unspecified severity; L97.429 Non-pressure chronic ulcer of left heel and midfoot with unspecified severity; L97.319 Non-pressure chronic ulcer of right ankle with unspecified severity; I70.92 Chronic total occlusion of artery of the extremities; Z51.5 Encounter for palliative care; Z66 Do not resuscitate; E78.5 Hyperlipidemia, unspecified; Z86.73 Personal history of transient ischemic attack (TIA), and cerebral infarction without residual deficits; Z20.822 Contact with and (suspected) exposure to COVID-19; Z79.4 Long term (current) use of insulin; Z79.899 Other long term (current) drug therapy; D72.829 Elevated white blood cell count, unspecified; R74.01 Elevation of levels of liver transaminase levels; M62.462 Contracture of muscle, left lower leg; M62.461 Contracture of muscle, right lower leg; M62.562 Muscle wasting and atrophy, not elsewhere classified, left lower leg; M62.561 Muscle wasting and atrophy, not elsewhere classified, right lower leg; L89.890 Pressure ulcer of other site, unstageable; Z74.09 Other reduced mobility; E27.9 Disorder of adrenal gland, unspecified; E83.42 Hypomagnesemia; F03.90 Unspecified dementia, unspecified severity, without behavioral disturbance, psychotic disturbance, mood disturbance, and anxiety; I10 Essential (primary) hypertension; I25.10 Atherosclerotic heart disease of native coronary artery without angina pectoris; I70.221 Atherosclerosis of native arteries of extremities with rest pain, right leg; K44.9 Diaphragmatic hernia without obstruction or gangrene; K57.30 Diverticulosis of large intestine without perforation or abscess without bleeding; Z74.01 Bed confinement status; K76.9 Liver disease, unspecified; M85.80 Other specified disorders of bone density and structure, unspecified site; N21.0 Calculus in bladder; N30.90 Cystitis, unspecified without hematuria; N40.0 Benign prostatic hyperplasia without lower urinary tract symptoms; R62.7 Adult failure to thrive; Y95 Nosocomial condition
CPT/HCPCS: 36246; 36410; 36415; 71045-TC; 73630-TC; 75574; 75625; 75710-TC; 80048-TC; 80061-TC; 80076-TC; 80202-TC; 82962-TC; 83540-TC; 83605-TC; 83735-TC; 84100-TC; 84443-TC; 84484-TC; 85025-TC; 85347; 85610-TC; 85652-TC; 85730-TC; 86850-TC; 87040-TC; 87081-TC; 87086-TC; 92526; A6253; A6403; A6407; C1725; C1726; C1769; C1887; C1894; C9113; C9803; G0378; G0463; G0500; J0692; J1644; J1650; J1815; J2250; J2270; J2543; J2720; J3010; J3370; J3475; J3480; J3490; J7030; J7050; J7060; Q9967